=== PATIENT | female | born 1985 | race Hispanic/Latino ===

== ENCOUNTER 2018-12-29 07:32 | Day surgery (SDC) | payer BC ==
[2018-12-29 08:11] VITALS: BMI 39.9
[2018-12-29] MEDS ORDERED: Propofol 10 mg/ml Inj (20 ML) ONE (11:46)
[2018-12-29] MEDS ORDERED: Midazolam 2 MG/2 ML VIAL ONE (11:46)
[2018-12-29] MEDS ORDERED: HYDROmorphone 0.5 mg/0.5 ml ISec IVP PRN (11:51)
[2018-12-29 13:37] VITALS: RESP 18; TEMP 97.7
[2018-12-29 14:57] VITALS: BP 106/72; PULSE 89; O2SAT 97
--- NOTE | 2018-12-29 22:54 | OP ---
PROCEDURE DATE: 12/29/2018 SURGEON: Glenis Ontiveros MD DIGITAL MEDIA REPRESENTATIVE: None. TYPE OF ANESTHESIA: General LMA, Dr. Hackett. PREOPERATIVE DIAGNOSIS: Abnormal uterine bleeding. POSTOPERATIVE DIAGNOSES: Abnormal uterine bleeding with endometrial polyp and submucosal myoma. PROCEDURE PERFORMED: Hysteroscopic myomectomy, polypectomy, dilation and curettage. SPECIMEN REMOVED: Endocervical curettings, endometrial curettings, submucosal myoma, endometrial polyp. ESTIMATED BLOOD LOSS: 10 mL. BLOOD PRODUCTS: None. COMPLICATIONS: None. OPERATIVE FINDINGS: Cervical stenosis, 10-week size, anteverted uterus, bilateral ostia visualized with multiple polypoid tissue noted throughout the cavity and one submucosal mass noted protruding within the left thigh 0.5 cm, carefully resected using Myosure device. DESCRIPTION OF PROCEDURE: The patient was taken to the operating room where she was given general anesthesia. Once it was found to be adequate, she was placed on the operating table in dorsal supine position with legs supported using stirrups. The patient was then prepped and draped in the usual sterile fashion. A time-out was performed to confirm correct patient and correct procedure. Bimanual exam was performed with the above-mentioned findings. Humphries retractor was placed on the anterior and posterior fornix of the vagina. The cervix was adequately visualized. A single-tooth tenaculum was placed on the anterior lip of the cervix. Endocervical curettings were obtained with a Kevorkian curette. The uterus was then sounded to 8 cm following which the cervix was sequentially dilated to allow for introduction of the hysteroscope under direct visualization using normal saline as the distention media. See the operative findings as below. MyoSure device was then carefully inserted to resect the masses with good hemostasis noted. The hysteroscope was then removed. Gentle curettage was done. Endometrial curettings obtained. Following that, the hysteroscope was reintroduced. There was good hemostasis noted. All instruments were removed. There was good hemostasis at the tenaculum puncture site. At the end of the procedure, all needles, sponge, and instrument counts were noted as correct x2. The patient tolerated the procedure well and was transferred to the recovery room in stable condition. Glenis Ontiveros MD
== END 2018-12-29 14:30 | disposition home or self-care (01) ==
LOC: C.SDS 07:32
PROVIDERS: ATTEND Obstetrics & Gynecology
DX: N84.0 Polyp of corpus uteri (principal); N95.0 Postmenopausal bleeding; N88.2 Stricture and stenosis of cervix uteri
CPT/HCPCS: 58558; 88305; J2250; J2704; J3010